=== PATIENT | female | born 1990 | race Caucasian/White ===

== ENCOUNTER 2021-06-13 14:10 | Emergency (ER) | payer MEDICAID, SELFPAY ==
[~2021-06-13] VITALS: Ht 160 cm; Wt 56.8 kg
[~2021-06-13 14:10] MED LIST: UNRESOLVED CLARIFICATION ENTRY XX SCH
[2021-06-13] MEDS ORDERED: MULT-90 PO (14:38)
[2021-06-13] MEDS ORDERED: LIDOCAINE 1% MDV 20ML VIAL SC ONE (18:20)
[2021-06-13 19:05] VITALS: BP 141/79
== END 2021-06-13 19:06 | disposition home or self-care (01) ==
LOC: M ED 14:10
DX: S71.112A Laceration without foreign body, left thigh, initial encounter (principal); W26.0XXA Contact with knife, initial encounter; Y92.89 Other specified places as the place of occurrence of the external cause; Y99.0 Civilian activity done for income or pay